=== PATIENT | female | born 1995 | race Caucasian/White ===

== ENCOUNTER 2021-10-21 18:26 | Emergency (ER) | payer MEDICAID ==
[~2021-10-21] VITALS: Ht 162.6 cm; Wt 66.0 kg
[2021-10-21] MEDS ORDERED: IBUP-2029 MT (18:52)
[2021-10-21] MEDS ORDERED: ACET-2708 MT (18:52)
[2021-10-21] MEDS ORDERED: ACETAMINOPHEN 325MG TABLET PO ONE (19:00)
[2021-10-21] MEDS ORDERED: IBUPROFEN 600MG TABLET PO ONE (19:00)
[2021-10-21 20:30] VITALS: BP 122/85
[2021-10-21] MEDS ORDERED: ACETAMINOPHEN 500MG TABLET PO NR (20:30)
== END 2021-10-21 20:30 | disposition home or self-care (01) ==
LOC: ER 18:26
DX: S09.8XXA Other specified injuries of head, initial encounter (principal); V43.62XA Car passenger injured in collision with other type car in traffic accident, initial encounter; Y93.89 Activity, other specified; Y92.410 Unspecified street and highway as the place of occurrence of the external cause
CPT/HCPCS: 99283